=== PATIENT | male | born 1930 | race Caucasian/White ===

== ENCOUNTER 2016-12-30 04:56 | Inpatient (IN) | payer MEDICARE, BC ==
[2016-12-26 10:05] LABS: HEMATOCRIT 38.2 % (40.0-51.0); HEMOGLOBIN 13.2 g/dL (13.6-17.8)
[2016-12-26 12:05] LABS: ASCORBIC ACID (UR NOT ORDER) NEG (NEG); BILIRUBIN, URINE NEGATIVE (NEG); KETONE, URINE NEGATIVE (NEG); LEUKOCYTE ESTERASE(NOT OR NEG (NEG); WBC (NOT ORDERED) (RFLEX) < 1 (0-5)
--- NOTE | ~2016-12-30 | OP ---
Record Of Operation [facility] [address] [place]. [address] NAME: MERVIN FLOR : 32 STATUS : ADM IN PAT#: [id number] AGE: 86 ADM/REG DATE : 12/30/16 MR#: [id number] REPORT SERV DATE: 12/30/16 DICTATED BY: BETHANY RAUSCH DATE: 12/30/16 REPORT STATUS : Draft TRANSCRIBED BY: MODL DATE: 12/30/16 DATE OF PROCEDURE: 12/30/2016 TITLE OF OPERATION: Left robotic-assisted laparoscopic robotic radical nephrectomy. PREOPERATIVE DIAGNOSIS: T2 left renal mass. POSTOPERATIVE DIAGNOSIS: T2 left renal mass. INDICATIONS: Mr. Flor is an 86-year-old male with normal renal function. He has incidental finding of a large 10 cm upper pole left renal mass. There was neovascularity with enhancing nodules in the perinephric fat. Given the complexity of this case, he has elected for robotic-assisted laparoscopic left radical nephrectomy. ANESTHESIA: General. COMPLICATIONS: None. IMPLANTS: 16-K[place] Marshall catheter. SPECIMEN: Left kidney with adrenal. NARRATIVE: The patient was brought to the operating room, identified by his wristband. General anesthesia was induced and Ancef was given for preoperative antibiotics. A Marshall catheter was placed. The balloon was inflated to 10 mL of sterile water. The patient was placed in the modified left flank position and secured to the bed with pads and tape. He was then prepped and draped in sterile fashion. His abdomen was insufflated to pressure of 15 mmHg using a Veress needle. An 8 mm port was placed in the left upper quadrant under direct vision. The abdomen was inspected, there were no adhesions. A standard X-Y port placement was performed with four 8 mm ports in the midclavicular line. A port was placed in a supraumbilical position. The robot was docked. The colon was dropped along the white line of Toldt exposing the retroperitoneum mass. The colon was reflected medially to expose the ureter and gonadal vein as well as the aorta. Next, the splenorenal ligaments were sharply detached. There was a long portion of the tail of the pancreas which was attached to the kidney. This was lysed sharply with care taken not to injure the pancreas. There was no evidence of invasion of the pancreatic tail. The SMA was identified just beneath the pancreas. It was preserved and uninjured. Next, I entered the retroperitoneum beneath the gonadal vein and ureter. The kidney was lifted up off the psoas muscle. Care was taken to reflect the psoas fascia onto the psoas muscle. There were some inflammatory periaortic nodes which left on the kidney. A solitary renal artery and vein were identified. The renal artery was taken with a 45 mm laparoscopic stapler. The renal vein was then taken with a 45 mm endovascular stapler. The adrenal vein was left on the renal vein above the suture line. Next, the adrenal kidney and the adrenal attachments taken with bipolar cautery and scissors. Lateral attachments taken down with monopolar cautery. The ureter and gonadal vein were stapled. The kidney was then freed from all attachments and placed into a Record Of Operation [address] [address] NAME: MERVIN FLOR : 32 STATUS : ADM IN PAT#: [id number] AGE: 86 ADM/REG DATE : 12/30/16 MR#: [id number] REPORT SERV DATE: 12/30/16 DICTATED BY: BETHANY RAUSCH DATE: 12/30/16 REPORT STATUS : Draft TRANSCRIBED BY: BIANCA DATE: 12/30/16 15 mm EndoCatch bag. There was no ongoing bleeding. Estimated blood loss was 15 mL. Abdomen was desufflated. There was still no bleeding. The patient was rotated back to his normal position. The ports were removed. The supraumbilical incision was enlarged at the skin and fascia level and the kidney and mass were removed and sent to pathology for analysis. The wounds were irrigated clear. The fascia was closed with #1 looped PDS suture. The wound was irrigated clear again. The skin was closed with 4-0 Monocryl suture. Dermabond dressing was placed. There were no complications. The patient was awoken from anesthesia and transferred to recovery room in stable condition. A TAP block was placed preoperatively. MIRI/BIANCA Bethany Rausch MD / [id number] CC: Bethany Rausch MD
--- NOTE | ~2016-12-30 | PREOPHP ---
PreOp History and Physical [address] [place]. [address] NAME: MERVIN FLOR : 32 STATUS : DIS IN PAT#: [id number] AGE: 86 ADM/REG DATE : 12/30/16 MR#: [id number] REPORT SERV DATE: 01/11/17 DICTATED BY: BETHANY RAUSCH DATE: 01/11/17 REPORT STATUS : Draft TRANSCRIBED BY: MODL DATE: 01/11/17 CHIEF COMPLAINT: Left renal mass. HISTORY OF PRESENT ILLNESS: Mr. Flor is a very pleasant 86-year-old male. He has a large left renal mass. He is otherwise healthy. He has no family history of this. He denies flank pain. He does have hematuria. He is here for a left radical nephrectomy. PAST MEDICAL HISTORY: BPH and cataracts. PAST SURGICAL HISTORY: Hernia repair and cataract repair. FAMILY HISTORY: Negative for genitourinary cancer. MEDICATIONS: Reviewed and are on the chart. ALLERGIES: NONE. REVIEW OF SYSTEMS: A 12-point review of systems was performed. Pertinent positives are listed in the HPI. SOCIAL HISTORY: He does not smoke, drink, or use illegal drugs. PHYSICAL EXAMINATION: VITAL SIGNS: Afebrile. Vital signs stable. GENERAL: No acute distress. Appears his stated age. HEENT: Head is normocephalic and atraumatic. LUNGS: Breathing is nonlabored. He is not in respiratory distress. CARDIAC: Pulse is regular in rate and rhythm. ABDOMEN: Soft, nontender, nondistended. NEUROLOGIC: He is alert and oriented x3. LABORATORY DATA: No new labs. IMAGING: No new imaging. ASSESSMENT: T2 left renal mass. PLAN: Left laparoscopic radical nephrectomy as discussed. Risks and benefits were discussed in detail. MIRI/BIANCA Bethany Rausch MD PreOp History and Physical [address] [place]. [address] NAME: MERVIN FLOR : 32 STATUS : DIS IN PAT#: [id number] AGE: 86 ADM/REG DATE : 12/30/16 MR#: [id number] REPORT SERV DATE: 01/11/17 DICTATED BY: BETHANY RAUSCH DATE: 01/11/17 REPORT STATUS : Draft TRANSCRIBED BY: BIANCA DATE: 01/11/17 / [id number] CC: MD Nishant Reyes M.D.
--- NOTE | ~2016-12-30 | DS ---
Discharge Summary [facility] [address] [place]. [address] NAME: MERVIN FLOR : 32 STATUS : DIS IN PAT#: [id number] AGE: 86 ADM/REG DATE : 12/30/16 MR#: [id number] REPORT SERV DATE: 01/12/17 DICTATED BY: BETHANY RAUSCH DATE: 01/11/17 REPORT STATUS : Draft TRANSCRIBED BY: MODL DATE: 01/11/17 ADMISSION DATE: 12/30/2016 DISCHARGE DATE: 01/02/2017 DISCHARGE DIAGNOSES: 1. Left renal mass. 2. Benign prostatic hypertrophy. DISCHARGE PROCEDURES: Left laparoscopic radical nephrectomy. HOSPITAL COURSE: Mr. Flor is an 86-year-old male with a T2 left renal mass. On the date of admission, he underwent a left laparoscopic radical nephrectomy. He tolerated the procedure well. There were no major complications. For full operative details, please see my operative note. Postoperatively, he was transferred to the recovery room and to the floor in stable condition. During his hospitalization, he remained afebrile. His vital signs remained within normal limits. Marshall catheter placed during surgery was removed and he is able to void spontaneously. On the day of discharge, he was ambulating. He was tolerating regular diet and had return of bowel function. He was then discharged home. DISCHARGE MEDICATIONS: Please see discharge medicine reconciliation work sheet. DISCHARGE INSTRUCTIONS: Please see my preprinted discharge instructions. FOLLOWUP: Please follow up with me in two weeks. DICTATED BY: Bethany Rausch MD JLOUISE/BIANCA Bethany Rausch MD / [id number] CC: MD Nishant Reyes M.D.
[~2016-12-30 04:56] MED LIST: RED YEAS1 PO; VITAMIN D31000 UNIT PO
[2016-12-30 10:36] LABS: BASOPHILS 0.2 %; BASOPHILS ABSOLUTE 0.01 10/3/uL (0.0-0.16); EOSINOPHILS 0.8 %; EOSINOPHILS ABSOLUTE 0.04 10/3/uL (0.0-0.53); HEMATOCRIT 37.4 % (40.0-51.0); HEMOGLOBIN 12.9 g/dL (13.6-17.8); IMMATURE GRANULOCYTES 0.4 %; IMMATURE GRANULOCYTES ABSOLUTE 0.02 10/3/uL (0.0-0.11); LYMPHOCYTES 7.4 %; LYMPHOCYTES ABSOLUTE 0.38 10/3/uL (0.67-4.30); MANUAL DIFF NO %; MEAN CORPUS HGB CONC 34.5 g/dL (32.0-36.0); MEAN CORPUSCULAR HEMOGLOB 28.5 pg (26.0-34.0); MEAN CORPUSCULAR VOLUME 82.6 fL (80-100); MEAN PLATELET VOLUME 9.3 fL (9.2-13.0); MONOCYTES 2.1 %; MONOCYTES ABSOLUTE 0.11 10/3/uL (0.21-1.20); NEUTROPHILS 89.1 %; NEUTROPHILS ABSOLUTE 4.56 10/3/uL (2.02-8.40); PLATELET COUNT 105 10/3/uL (150-400); RBC DISTRIBUTION WIDTH 13.8 % (12.0-16.0); RED CELL COUNT 4.53 10/6/uL (4.7-6.1); WHITE BLOOD CELLS 5.1 10/3/uL (4.5-10.5)
[2016-12-30 10:49] LABS: BUN (BLOOD UREA NITROGEN) 11 MG/DL (6-23); CALCIUM, SERUM 8.6 MG/DL (8.5-10.4); CHLORIDE, SERUM 108 MMOL/L (96-112); CO2 (CARBON DIOXIDE) 26 MMOL/L (24-34); CREATININE 1.05 MG/DL (0.70-1.30); GFR AFRICAN AMERICAN 75 ML/MIN (>=60); GFR NON AFRICAN AMERICAN 64 ML/MIN (>=60); GLUCOSE, SERUM 152 MG/DL (60-99); POTASSIUM, SERUM 3.7 MMOL/L (3.5-5.3); SODIUM, SERUM 143 MMOL/L (135-148)
[2016-12-31 05:34] LABS: BASOPHILS 0.1 %; BASOPHILS ABSOLUTE 0.01 10/3/uL (0.0-0.16); EOSINOPHILS 0.2 %; EOSINOPHILS ABSOLUTE 0.02 10/3/uL (0.0-0.53); HEMATOCRIT 39.9 % (40.0-51.0); HEMOGLOBIN 13.6 g/dL (13.6-17.8); IMMATURE GRANULOCYTES 0.2 %; IMMATURE GRANULOCYTES ABSOLUTE 0.02 10/3/uL (0.0-0.11); LYMPHOCYTES 13.1 %; LYMPHOCYTES ABSOLUTE 1.19 10/3/uL (0.67-4.30); MEAN CORPUS HGB CONC 34.1 g/dL (32.0-36.0); MEAN CORPUSCULAR HEMOGLOB 28.6 pg (26.0-34.0); MEAN CORPUSCULAR VOLUME 83.8 fL (80-100); MEAN PLATELET VOLUME 9.7 fL (9.2-13.0); MONOCYTES 8.7 %; MONOCYTES ABSOLUTE 0.79 10/3/uL (0.21-1.20); NEUTROPHILS 77.7 %; NEUTROPHILS ABSOLUTE 7.03 10/3/uL (2.02-8.40); PLATELET COUNT 129 10/3/uL (150-400); RBC DISTRIBUTION WIDTH 13.8 % (12.0-16.0); RED CELL COUNT 4.76 10/6/uL (4.7-6.1)
[2016-12-31 05:35] LABS: MANUAL DIFF NO %; WHITE BLOOD CELLS 9.1 10/3/uL (4.5-10.5)
[2016-12-31 05:42] LABS: BUN (BLOOD UREA NITROGEN) 12 MG/DL (6-23); CALCIUM, SERUM 8.3 MG/DL (8.5-10.4); CHLORIDE, SERUM 109 MMOL/L (96-112); CO2 (CARBON DIOXIDE) 24 MMOL/L (24-34); CREATININE 1.33 MG/DL (0.70-1.30); GFR AFRICAN AMERICAN 56 ML/MIN (>=60); GFR NON AFRICAN AMERICAN 48 ML/MIN (>=60); SODIUM, SERUM 141 MMOL/L (135-148)
[2016-12-31 05:43] LABS: GLUCOSE, SERUM 109 MG/DL (60-99)
[2017-01-01 06:57] LABS: BASOPHILS 0.3 %; BASOPHILS ABSOLUTE 0.02 10/3/uL (0.0-0.16); EOSINOPHILS 1.9 %; EOSINOPHILS ABSOLUTE 0.14 10/3/uL (0.0-0.53); HEMATOCRIT 41.7 % (40.0-51.0); HEMOGLOBIN 14.2 g/dL (13.6-17.8); IMMATURE GRANULOCYTES 0.3 %; IMMATURE GRANULOCYTES ABSOLUTE 0.02 10/3/uL (0.0-0.11); LYMPHOCYTES 12.9 %; LYMPHOCYTES ABSOLUTE 0.97 10/3/uL (0.67-4.30); MEAN CORPUS HGB CONC 34.1 g/dL (32.0-36.0); MEAN CORPUSCULAR HEMOGLOB 28.5 pg (26.0-34.0); MEAN CORPUSCULAR VOLUME 83.7 fL (80-100); MEAN PLATELET VOLUME 9.8 fL (9.2-13.0); MONOCYTES 10.5 %; MONOCYTES ABSOLUTE 0.79 10/3/uL (0.21-1.20); NEUTROPHILS 74.1 %; NEUTROPHILS ABSOLUTE 5.56 10/3/uL (2.02-8.40); PLATELET COUNT 129 10/3/uL (150-400); RBC DISTRIBUTION WIDTH 13.9 % (12.0-16.0); RED CELL COUNT 4.98 10/6/uL (4.7-6.1); WHITE BLOOD CELLS 7.5 10/3/uL (4.5-10.5)
[2017-01-01 07:01] LABS: MANUAL DIFF NO %
[2017-01-01 07:11] LABS: BUN (BLOOD UREA NITROGEN) 12 MG/DL (6-23); CALCIUM, SERUM 8.8 MG/DL (8.5-10.4); CHLORIDE, SERUM 110 MMOL/L (96-112); CO2 (CARBON DIOXIDE) 24 MMOL/L (24-34); CREATININE 1.47 MG/DL (0.70-1.30); GFR AFRICAN AMERICAN 50 ML/MIN (>=60); GFR NON AFRICAN AMERICAN 43 ML/MIN (>=60); GLUCOSE, SERUM 100 MG/DL (60-99); POTASSIUM, SERUM 4.4 MMOL/L (3.5-5.3); SODIUM, SERUM 141 MMOL/L (135-148)
[2017-01-02] MEDS ORDERED: PCET PO (08:10)
[2017-01-02] MEDS ORDERED: DSS PO (08:10)
== END 2017-01-02 13:32 | disposition home or self-care (01) | DRG 658 ==
LOC: SDC/OF 04:56 → PACU 10:06 → 4SO 12:29
PROVIDERS: Urology
PROC: 0TT74ZZ Resection of Left Ureter, Percutaneous Endoscopic Approach (ICD-10-PCS; principal; 2016-12-30 06:00)
PROC: 0GT24ZZ Resection of Left Adrenal Gland, Percutaneous Endoscopic Approach (ICD-10-PCS; principal; 2016-12-30 06:00)
PROC: 8E0W4CZ Robotic Assisted Procedure of Trunk Region, Percutaneous Endoscopic Approach (ICD-10-PCS; principal; 2016-12-30 06:00)
PROC: 0TT10ZZ Resection of Left Kidney, Open Approach (ICD-10-PCS; principal; 2016-12-30 06:00)
DX: D41.02 Neoplasm of uncertain behavior of left kidney (principal); Z87.891 Personal history of nicotine dependence
CPT/HCPCS: 36415; 80048; 81001; 85014; 85018; 85025; 86850; 86900; 86901; 86920; 88307; 88341; 88342; A9270-GY; J0690; J1170; J2250; J2370; J2405; J2710; J2795; J3010